=== PATIENT | male | born 1940 | race Two or more races ===

== ENCOUNTER 2017-08-22 14:53 | Inpatient (IN) | payer OTHER ==
[~2017-08-22] VITALS: Ht 167.6 cm; Wt 68.0 kg
[2017-08-22 13:00] VITALS: BP 154/75
--- NOTE | 2017-08-22 13:00 | NUR ---
CENTER MACHINE OPERATOR TO MED SURG NOTES RECV'D PT FROM ER TRIAGE SECONDARY TO [facility]. PT FROM [facility]. AAO1. CONFUSED. H/O DEMENTIA. NO SKIN BREAKDOWN. NO IV ACCESS. BED IN LOW LOCKED POSITION. CALL LIGHT IN REACH. WILL CONT TO MONITOR.
[2017-08-22] MEDS ORDERED: MAG HYDROX/AL HYDROX/SIMETH 30 ML UDC PO PRN (15:30)
[2017-08-22] MEDS ORDERED: ONDANSETRON HCL/PF 4 MG/2 ML VIAL IVP PRN (15:30)
[2017-08-22] MEDS ORDERED: ACETAMINOPHEN 325 MG TABLET PO PRN (15:30)
[2017-08-22] MEDS ORDERED: MAGNESIUM HYDROXIDE 30 ML UDC PO PRN (15:30)
[2017-08-22] MEDS ORDERED: ZOLPIDEM TARTRATE 5 MG TABLET PO PRN (15:30)
[2017-08-22] MEDS ORDERED: HYDROCODONE/APAP 5/325MG 1 EACH TABLET PO PRN (15:30)
[2017-08-22] MEDS ORDERED: Z GUARD REMEDY 2 OZ OINT TP PRN (15:30)
[2017-08-22 16:00] VITALS: BP 103/70
--- NOTE | 2017-08-22 18:02 | NUR ---
RN CLOSING NOTES PT RESTING COMFORTABLY. NO S/S RESP DISTRESS. 95% RA. CALL LIGHT IN REACH. BED IN LOW LOCKED POSITION. WILL ENDORSE REPORT TO NOC RN.
[2017-08-22 18:22] VITALS: BP 131/75
--- NOTE | 2017-08-22 19:20 | NUR ---
RN INITIAL NOTES, RECEIVED PATIENT IN BED ALERT AND ORIENTED TO SELF, BREATHING EVEN AND UNLABORED, NO S/S OF ACUTE DISTRESS , SOB OR DISCOMFORT NOTED THIS TIME, WITH 98% SATURATION AT ROOM AIR, AWAITING FOR MIDLINE INSERTION NURSE, NOTED DRY AND CLEAN, BED LOCKED AND IN LOWEST POSITION, CALL LIGHT W/I REACH, WILL CONTINUE TO MONITOR CLOSELY.
[2017-08-22 20:00] VITALS: BP 113/74
[2017-08-23] MEDS: IV NS 0.9% 1,000 ML IV PRN ×2 (01:05→16:42)
[2017-08-23 04:00] VITALS: BP 107/74
--- NOTE | 2017-08-23 07:00 | NUR ---
RN CLOSING NOTES, PATIENT SLEEPING BED, BREATHING EVEN AND UNLABORED NO S/S OF SOB, ACUTE DISTRESS OR ANY DISCOMFORT, O2 SATURATION AT 98% RA. BED LOCKED AND IN LOWEST POSITION, CALL LIGHT W/ REACH. WILL ENDORSE CARE TO NEXT SHIFT NURSE.
--- NOTE | 2017-08-23 07:32 | NUR ---
MS RN OPENING RECEIVED PATIENT SLEEPING AWAKE TO DEEP TOUCH. PATIENT NOT ANSWERING QUESTIONS AT THIS TIME, COVERING HEAD WITH BLANKET AND WANTS TO SLEEP. AT THIS TIME PATIENT DOES NOT APPEAR TO HAVE ANY S/S SOB, DIFFICULTY BREATHING OR PAIN. ALL NEEDS IN REACH, BED LOWERED AND LOCKED, RAILS UPX3 FOR SAFETY AND BED ALARM ON. WILL ROUND Q2H OR LESS PER NEEDS
[2017-08-23 08:00] VITALS: BP 159/72
[2017-08-23 08:30] VITALS: BP 146/70
[2017-08-23] MEDS: ENOXAPARIN SODIUM 40 MG/0.4 ML DISP.SYRIN SQ SCH (08:45)
[2017-08-23 08:51] LABS: BASOPHILS % (AUTO) 0.4 % (0.0-2.0); EOSINOPHILS # (AUTO) 0.3 /CMM (0.0-0.7); EOSINOPHILS % (AUTO) 5.1 % (0.0-6.0); HEMATOCRIT 41 % (39-51); HEMOGLOBIN 13.2 g/dL (13.5-17.5); LYMPHOCYTES % (AUTO) 19.1 % (20.0-44.0); MEAN CORPUSCULAR HEMOGLOBIN 32 PG (26.0-33.0); MEAN CORPUSCULAR HGB CONC 33 g/dl (31.0-36.0); MEAN CORPUSCULAR VOLUME 97 fL (80-96); MONOCYTES # (AUTO) 0.4 /CMM (0.1-1.30); MONOCYTES % (AUTO) 8.7 % (2.0-12.0); NEUTROPHILS # (AUTO) 3.4 /CMM (1.8-8.9); NEUTROPHILS % (AUTO) 66.7 % (43.0-81.0); PLATELET COUNT (AUTO) 231 /CMM (150-450); RDW COEFFICIENT OF VARIATION 13.1 (11.5-15.0); RED BLOOD CELL COUNT(AUTO) 4.16 MIL/uL (4.5-6.0)
--- NOTE | 2017-08-23 11:04 | NUR ---
ms rn notes dr brian at bedside
--- NOTE | 2017-08-23 11:09 | NUR ---
MS RN NOTES DR MCKEON AWARE OF MEDICATIONS ON MED RECON. NO NEW ORDERS AT THIS TIME
[2017-08-23 15:33] LABS: ALANINE AMINOTRANSFERASE 14 U/L (12-78); ALBUMIN 2.8 g/dL (3.4-5.0); ALKALINE PHOSPHATASE 87 U/L (46-116); ASPARTATE AMINOTRANSFERASE 14 U/L (15-37); BILIRUBIN,TOTAL 0.3 mg/dL (0.2-1.0); CALCIUM, SERUM 8.8 mg/dL (8.5-10.1); CARBON DIOXIDE 29 mmol/L (21-32); CHLORIDE 111 mmol/L (98-107); CREATININE 0.8 mg/dL (0.6-1.3); GLUCOSE 134 mg/dL (74-106); MAGNESIUM 1.9 mg/dL (1.8-2.4); POTASSIUM 4.8 mmol/L (3.5-5.1); SODIUM SERUM 144 mmol/L (136-145); TOTAL PROTEIN, SERUM 6.4 g/dL (6.4-8.2); UREA NITROGEN, BLOOD 23 mg/dL (7-18)
[2017-08-23 15:43] LABS: CHOLESTEROL 114 mg/dL (<200); LDL 70 mg/dL (0-99); THYROID STIMULATING HORMONE 0.163 uIU/mL (0.358-3.74); TRIGLYCERIDES 69 mg/dL (30-150)
[2017-08-23 15:45] LABS: INR 0.99 (0.87-1.13); PROTHROMBIN TIME 10.3 SECS (9.5-12.7)
[2017-08-23 16:00] VITALS: BP 125/76
[2017-08-23 16:51] LABS: HDL CHOLESTEROL 34 mg/dL (40-60)
[2017-08-23 17:46] LABS: IRON, SERUM 53 ug/dl (50-175); TOTAL IRON BINDING CAPACITY 178 ug/dl (250-450)
--- NOTE | 2017-08-23 18:55 | NUR ---
MS RN CLOSING PATIENT STABLE. ALL NEEDS MET AND DUE MEDS GIVEN. ALL NEEDS IN REACH. BED LOWERED AND LOCKED, RAILS UPX3 FOR SAFETY BED ALARM ON. PATIENT CARE ENDORSED TO RN FOR ALEXANDER
--- NOTE | 2017-08-23 19:05 | NUR ---
RN OPENING NOTES RECEIVED REPORT FROM DEVANTE TERESA. PATIENT A/A/O X2. BREATHING EVEN & UNLABORED, SATING WELL ON ROOM AIR. DENIES SOB OR DIFFICULTY BREATHING. PULSES PRESENT. SKIN WARM, DRY & INTACT. RIGHT HAND IV #22 INTACT & PATENT W/ DRESSING CDI & IVF NS @ 75 ML/HR. DENIES ANY PAIN OR DISCOMFORT @ THIS TIME. SAFETY MEASURES IN PLACE W/ SIDE RAILS UP, BED LOCKED & IN LOWEST POSITION & CALL LIGHT WITHIN REACH. WILL CONTINUE TO MONITOR.
[2017-08-23 20:00] VITALS: BP_SYST 108; BP_SYST 129; BP_DIAS 68; BP_DIAS 72
[2017-08-24 04:00] VITALS: BP 121/69
[2017-08-24] MEDS: IV NS 0.9% 1,000 ML IV PRN ×2 (05:56→20:55)
--- NOTE | 2017-08-24 07:05 | NUR ---
RN NOTES RECEIVED PATIENT ON BED, RESPIRATION EVEN AND UNLABORED, DOES NOT ANSWERING QUESTIONS AT THIS TIME, WANTS TO SLEEP. NO DISTRESS NOTED, R HAND IV SITE CDI, WITH NS AT 75CC/HR RUNNING, SR UP x3, CALL LIGHT WITHIN EASY REACH, BED LOCKED AND IN LOWEST POSITION , CONTINUE TO MONITOR .
[2017-08-24 08:00] VITALS: BP_SYST 114; BP_SYST 146; BP_DIAS 68; BP_DIAS 87
[2017-08-24] MEDS: ENOXAPARIN SODIUM 40 MG/0.4 ML DISP.SYRIN SQ SCH (08:18)
--- NOTE | 2017-08-24 13:00 | NUR ---
RN NOTES PT STABLE . AWAITING TO BE DISCHARGE TO SNF PER DR LINDA COX .
[2017-08-24 16:00] VITALS: BP 115/66
--- NOTE | 2017-08-24 18:21 | NUR ---
RN NOTES NO BED AVAILABLE YET, PT STABLE , R HAND IV SITE WITH NS AT 75CC/HR RUNNING , SR UP x3, CALL LIGHT WITHIN EASY REACH, WILL ENDORSE TO CUSTOM DESIGNER NURSE FOR ALEXANDER
--- NOTE | 2017-08-24 19:10 | NUR ---
RN OPENING NOTES RECEIVED REPORT FROM ROHINI TERESA. PATIENT A/A/O X2 W/ CONFUSION. BREATHING EVEN & UNLABORED, SATING WELL ON ROOM AIR. DENIES SOB OR DIFFICULTY BREATHING. PULSES PRESENT. SKIN WARM, DRY & INTACT. RIGHT HAND IV #22 INTACT & PATENT W/ DRESSING CDI & IVF NS @ 75 ML/HR. DENIES ANY PAIN OR DISCOMFORT @ THIS TIME. SAFETY MEASURES IN PLACE W/ SIDE RAILS UP, BED LOCKED & IN LOWEST POSITION & CALL LIGHT WITHIN REACH. WILL CONTINUE TO MONITOR & STILL AWAITING BED FOR D/C TO SNF.
[2017-08-24 20:00] VITALS: BP 112/68
[2017-08-25 04:00] VITALS: BP 126/65
--- NOTE | 2017-08-25 07:18 | NUR ---
RN NOTES RECEIVED PT FROM [employer] IN STABLE CONDITION, A&0X1-2 CONFUSED. ON ROOM AIR NO SOB OR DISTRESS NOTED. L HAND 22G IV SITE DRY AND INTACT WITH IVF AT 75ML/HR. BED LOCKED AND IN LOWEST POSITION, CALL LIGHT WITHIN REACH, SIDE RAILS UPX3, WILL CONT TO ESTEFANI.
[2017-08-25 08:00] VITALS: BP 122/76
[2017-08-25] MEDS: ENOXAPARIN SODIUM 40 MG/0.4 ML DISP.SYRIN SQ SCH (08:36)
[2017-08-25 16:00] VITALS: BP 138/72
--- NOTE | 2017-08-25 18:23 | NUR ---
RN NOTES PT REMAINED IN STABLE CONDITION THROUGHOUT THE SHIFT, NO CHANGES, ALL NEEDS MET. WILL ENDORSE TO ONCOMING SHIFT.
[2017-08-25 20:00] VITALS: BP 142/74
[2017-08-26 04:00] VITALS: BP_SYST 142; BP_SYST 145; BP_DIAS 74; BP_DIAS 75
--- NOTE | 2017-08-26 07:05 | NUR ---
RN INITIAL NOTE PATIENT RECEIVED IN BED RESTING. EASILY AROUSED. CONFUSED. RESPIRATIONS ARE EVEN AND UNLABORED. NO S/S OF RESPIRATORY DISTRESS OR SOB. SATING WELL ON ROOM AIR. SKIN IS WARM AND DRY TO TOUCH. IV SITE FLUSHED, PATENT. SAFETY PRECAUTIONS IMPLEMENTED, BED IN LOCKED, LOW POSITION WITH TWO SIDE RAILS UP. CALL LIGHT AND BELONGINGS WITHIN EASY REACH. WILL CONTINUE TO MONITOR.
[2017-08-26 08:00] VITALS: BP 145/82
[2017-08-26] MEDS: ENOXAPARIN SODIUM 40 MG/0.4 ML DISP.SYRIN SQ SCH (08:55)
[2017-08-26 16:00] VITALS: BP 138/83
--- NOTE | 2017-08-26 17:06 | NUR ---
RN CLOSING NOTE PATIENT DISCHARGED TO [facility]. ID AND IV SITE REMOVED. PATIENT TRANSFERRED VIA AMBULANCE. Addendum: 08/26/17 at 1707 by ESTEFANI KEITH RN NO WOUNDS TO PHOTOGRAPH
== END 2017-08-26 17:00 | DRG 917 ==
LOC: EDUNIT# 14:53 → ER 15:07 → MEDSG1 15:11
PROVIDERS: ADMIT Internal Medicine; ATTEND Internal Medicine
DX: T59.811A Toxic effect of smoke, accidental (unintentional), initial encounter (principal); J96.01 Acute respiratory failure with hypoxia; I69.359 Hemiplegia and hemiparesis following cerebral infarction affecting unspecified side; J70.5 Respiratory conditions due to smoke inhalation; E11.9 Type 2 diabetes mellitus without complications; D64.9 Anemia, unspecified; Y92.129 Unspecified place in nursing home as the place of occurrence of the external cause; F03.90 Unspecified dementia, unspecified severity, without behavioral disturbance, psychotic disturbance, mood disturbance, and anxiety; Z85.048 Personal history of other malignant neoplasm of rectum, rectosigmoid junction, and anus; I25.10 Atherosclerotic heart disease of native coronary artery without angina pectoris; I10 Essential (primary) hypertension; E03.9 Hypothyroidism, unspecified; I25.9 Chronic ischemic heart disease, unspecified; Z88.0 Allergy status to penicillin
CPT/HCPCS: 36415; 71010-TC; 80053-TC; 80061-TC; 82746; 83540-TC; 83735-TC; 84100-TC; 84443-TC; 85025-TC; 85730-TC; 87081-TC; A4606; J1650; J3490; J7030; Z7610